=== PATIENT | female | born 1955 | race Caucasian/White ===

== ENCOUNTER 2022-08-31 09:04 | Emergency (ER) | payer MEDICARE, BC | END 2022-08-31 10:20 | disposition home or self-care (01) | LOC: JD.ED 09:04 | DX: G51.0 Bell's palsy (principal); I10 Essential (primary) hypertension; Z88.8 Allergy status to other drugs, medicaments and biological substances; Z79.82 Long term (current) use of aspirin | CPT/HCPCS: 70450; 70450-26; 82947; 99285 ==